=== PATIENT | male | born 1985 | race Caucasian/White ===

== ENCOUNTER → 2018-03-22 | Outpatient (CLI) | payer SELFPAY ==
--- NOTE | 2018-03-22 13:27 | CT ---
Examination: CT of the abdomen and pelvis without contrast. Clinical History: Chronic hematuria, history of urinary calculi. Technique: Multiple axial images were obtained from the lung bases down to the pubic symphysis. No or al or intravenous contrast was administered. Dose reduction techniques including automated exposure c ontrol (AEC) and adjustment of mA and kV were utilized. Comparison: None available. Findings: The visualized portion of the lung bases is unremarkable. A lack of intravenous contrast limits evaluation of the solid intra-abdominal organs. There is an 8 mm nonobstructing calculus present at the lower pole of the left kidney. No acute urina ry tract obstruction is noted. No ureteral or bladder calculus is noted. The kidneys are otherwise wi thin normal limits. The liver, spleen, pancreas, gallbladder and adrenal glands are normal in appearance. The abdominal aorta is normal in caliber. The bowel gas pattern is non-obstructive. There is no free air. The colon is within normal limits. The small bowel is grossly unremarkable. The appendix is visualized and is normal in appearance. The bladder, prostate and seminal vesicles are within normal limits. No pelvic mass or fluid collection is noted. No acute osseous abnormality is noted. Impression: 1. There is an 8 mm nonobstructing calculus present at the lower pole of the left kidney. No acute ur inary tract obstruction is noted. No ureteral or bladder calculus is noted. The kidneys are otherwise within normal limits. Reported By:
== END ==
LOC: RAD 12:50
PROVIDERS: ATTEND Internal Medicine
DX: R31.9 Hematuria, unspecified (principal); Z87.442 Personal history of urinary calculi; N20.0 Calculus of kidney
CPT/HCPCS: 74176